=== PATIENT | female | born 1965 | race Caucasian/White ===

== ENCOUNTER → 2024-09-23 15:41 | Outpatient (REF) | payer OTHER, SELFPAY | LOC: HWWDC 15:41 | PROVIDERS: ATTENDING PHYSICIAN Obstetrics & Gynecology; FAMILY PHYSICIAN Family Medicine | DX: Z12.31 Encounter for screening mammogram for malignant neoplasm of breast (principal) | CPT/HCPCS: 77063; 77067 ==

== ENCOUNTER 2025-08-24 14:28 | Emergency (ER) | payer OTHER, SELFPAY ==
[2025-08-24 14:33] VITALS: BP 147/93
--- NOTE | 2025-08-24 14:49 | ED.GENMED ---
History of Present Illness
General
Chief Complaint: Allergic Reaction
Source: patient and family
Exam Limitations: none
Time Seen by Provider: 08/24/25 14:33
Nursing documentation reviewed up to this point in time: agreed with
History of Present Illness
History of Present Illness:
59-year-old female presenting to the emergency department after being stung on her right posterior knee prior to arrival. She notes swelling to her leg and then noticed some difficulty breathing with some swelling to her neck and face. She noted
some wheezing as well. She used 2 EpiPen's at home and called EMS. EMS arrived she was till having severe symptoms given a dose of epi as well as 50 of Benadryl and an albuterol nebulizer. She claims that symptoms seemingly have been improving
but not resolved. Still has some shortness of breath. Denies ongoing hives additional symptoms otherwise. No abdominal pain nausea vomiting or diarrhea.
Past History
Past History
ED Past Medical History: Other (Migraine headaches) and Other (Recurrent sinusitis and ear infections)
ED Past Surgical History: Other (Hernia repair)
Social History
Personal:
Living: with family
Employment: Employed
Review of Systems
Review of Systems
Allergies reviewed?: Yes
All Other Systems: ROS reviewed and negative except as documented in HPI and ROS
Phy Exam
Physical Exam
Physical Exam:
GENERAL: Alert , in no apparent distress
EYE: pupils equal and reactive
NECK: Supple, no significant adenopathy.
ENT: No obvious swelling to the mucous membranes or neck, o/p clr, mmm.
CARDIAC: Regular rate and rhythm .
LUNGS: Diffuse expiratory wheezing
ABDOMEN: Soft, without focal tenderness, no r/g, no cvat
NEUROLOGICAL: Alert and oriented, no focal neuro deficits
SKIN: Warm and dry, skin intact.
MUSCULOSKELETAL: No edema, well perfused.
PSYCH: Normal and appropriate interaction.
Course
Orders/Labs/Results
Orders:
Orders
08/24/25 14:46
Dexamethasone Sod Phosphate [Decadron] 10 mg IV NOW STA
Famotidine [Pepcid] 20 mg IV NOW STA
Ipratropium/Albuterol Sulfate [Duoneb] 3 ml INH R NOW ONE
Vital Signs
Initial and Last Documented VS:
Initial Vital Signs
Temp Pulse Resp BP Pulse Ox
97.9 F 114 20 147/93 94
08/24/25 14:33 08/24/25 14:33 08/24/25 14:33 08/24/25 14:33 08/24/25 14:33
Last Documented Vital Signs
Temp Pulse Resp BP Pulse Ox
97.9 F 116 20 147/93 92
08/24/25 14:33 08/24/25 14:42 08/24/25 14:42 08/24/25 14:33 08/24/25 14:51
MDM/Problems Addressed
MDM/Problems Addressed:
59-year-old female presenting to the emergency department today with concerns of allergic reaction to bee sting. Patient had wheezing and shortness of breath took 2 EpiPen's at home then called EMS they then administered another dose of epinephrine
and also gave 50 of Benadryl. Here she is mildly tachycardic otherwise vital signs are normal. She does have ongoing wheezing was given nebulizer treatment as well as dexamethasone dose and famotidine dose. Patient observed for multiple hours in
the ER with significant improvement of symptoms. Patient stable for discharge at this time return precautions given.
*Pulse Oximetry
SaO2: 92
Oxygen Mode of Delivery: Room air
Patient hypoxic: no (97)
*Critical Care Note
Total Time (30-74mins, 75-104mins- exclusive of procedures): Not Applicable
ED Attending Note
-
Portions of this chart may have been created with voice recognition software.� Occasional wrong word or��sound alike� substitutions may have occurred due to the inherent limitations of voice recognition software.
Discharge Plan
Departure
Patient Disposition: Home (Routine Discharge)
Date of Disposition: 08/24/25
Time of Disposition: 16:39
Patient with high blood pressure during this ER visit?: No
Condition: Good
Covid-19: Not Applicable
Discharge Problem:
Allergic reaction to bee sting
Instructions: Anaphylaxis (DC)
Prescriptions:
New
famotidine 20 mg tablet
20 mg PO BID 4 Days Qty: 8 0RF
epinephrine [Auvi-Q] 0.3 mg/0.3 mL auto-injector
0.3 mg IM Q5-15M PRN (Reason: anaphylaxis) Qty: 2 0RF
cetirizine [Zyrtec] 10 mg tablet
10 mg PO BID 4 Days Qty: 8 0RF
prednisone 20 mg tablet
40 mg PO DAILY 4 Days Qty: 8 0RF
No Action
montelukast 10 MG tablet
10 mg PO QPM
budesonide-formoterol [Symbicort] 1 PUFF HFA aerosol inhaler
1 puff inhalation DAILY
multivitamin 1 EACH tablet
1 ea PO DAILY
ergocalciferol (vitamin D2) 400 UNIT tablet
400 unit PO DAILY
cyanocobalamin (vitamin B-12) 1,000 MCG tablet
1,000 mcg SC
Patient Comments:
Twice weekly
folic acid 0.4 MG tablet
0.4 mg PO DAILY
potassium [Potassium-99] 99 MG tablet
99 mg PO DAILY
vitamin B complex 1 TAB tablet
1 tab PO DAILY
zinc 50 MG tablet
50 mg PO DAILY
norethindrone acetate 5 MG tablet
5 mg PO DAILY
fluticasone propionate 1 SPRAY spray,suspension
2 spray intranasal BID
valsartan 160 MG tablet
160 mg PO DAILY
cephalexin 500 MG capsule
500 mg PO QID Qty: 40 0RF
Referrals:
Rafa Biggs MD [Family Provider, [facility]]
Activity Restrictions/Additional Instructions:
You came to the emergency department today with concerns of an allergic reaction. Here you had significant improvement of symptoms. Please take the prescribed medications over the next 4 days and follow-up closely with the primary care doctor.
Return for any worsening, new or concerning symptoms.
Discharge Date and Time
Print Language: CROATIAN
[2025-08-24 15:00] VITALS: BP 156/96
[2025-08-24] MEDS: DECADRON 10 MG IV (15:01)
[2025-08-24] MEDS: PEPCID 20 MG IV (15:02)
[2025-08-24] MEDS: DUONEB 3 ML INH (15:22)
[2025-08-24 16:00] VITALS: BP 163/104
== END 2025-08-24 17:45 | disposition home or self-care (01) ==
LOC: EMR 14:28
PROVIDERS: EMERGENCY PHYSICIAN Student in an Organized Health Care Education/Training Program; FAMILY PHYSICIAN Family Medicine
DX: T63.441A Toxic effect of venom of bees, accidental (unintentional), initial encounter (principal); R06.02 Shortness of breath; X58.XXXA Exposure to other specified factors, initial encounter
CPT/HCPCS: 94640; 96374; 96375; 99284